=== PATIENT | female | born 1960 | race Caucasian/White ===

== ENCOUNTER 2017-01-29 22:25 | Emergency (ER) | payer BC ==
[~2017-01-29] VITALS: Ht 162.6 cm; Wt 80.2 kg
[~2017-01-29 22:25] MED LIST: ALEVE220 M2 PO; AMOXICILLIN500 M1 PO; ANAPROX DS550 M1 PO; AZITHROMYCIN250 MG PO; B COMPLETE1 EACH PO; BACTRIM,SEPT1 TABLET PO; BACTROBAN CREAM15 GM TP; CLEOCIN150 MG PO; COREG6.25 M1 PO; CRESTOR; CRESTOR20 MG PO; DOXYCYCLINE HY100 MG PO; ENDOCET 5-3251 EACH PO; FISH OIL 1,2001 EAC3 PO; FISH OIL SOFTG1 EACH PO; GLUCOPHAGE1000 MG PO; IBUPROFEN800 MG PO; JARDIANCE10 MG PO; KOMBIGLYZE XR1 EAC1 PO; LAMICTAL25 MG PO; LEVEMIR FL100 UNIT/1 SC; LISINOPRIL10 MG PO; LUNESTA1 MG PO; LYRICA150 MG PO; LYRICA75 MG PO; MULTIVITAMIN1 EAC2 PO; ONGLYZA5 MG PO; OXYCODONE HCL10 MG PO; Omnicef PO; PREDNISONE10 M1 PO; PREDNISONE20 MG PO; PRILOSEC20 MG PO; PRINIVIL10 MG PO; ROBAXIN500 MG PO; SEROQUEL100 MG PO; SEROQUEL300 MG PO; SEROQUEL400 MG PO; TRAMADOL HCL50 MG PO; Tylenol Regular Stre PO; ULTRAM50 MG PO; Ultram PO; VALIUM2 MG PO; VICODIN 5-3001 EACH PO; VITAMIN B-6100 MG PO; VITAMIN D2000 UNIT PO; VITAMIN D250000 UNIT PO; VITAMIN D31000 UNI2 PO; VITAMIN D5000 UNIT PO; ZOFRAN4 MG PO; predniSONE PO
[2017-01-29 23:38] LABS: HEMATOCRIT 38.3 % (36.0-46.0); MCH 28.5 PG (29.0-34.0); MCHC 34.2 G/DL (30.0-36.0); MCV 83.3 FL (83-99); MEAN PLAT.VOLUME 9.2 uM^3 (9.5-12.4); PLATELET COUNT 229 K/uL (156-360); RBC DIS.WIDTH-CV 12.8 % (11.8-14.6); RBC DIS.WIDTH-SD 38.7 % (39-53); WHITE BLOOD COUNT 4.9 K/uL (4.1-10.2)
[2017-01-29 23:51] LABS: CHLORIDE 105 mEq/L (99-109); POTASSIUM 3.6 mEq/L (3.7-5.4); SODIUM 140 mEq/L (136-147)
[2017-01-29 23:53] LABS: GLUCOSE 219 mg/dL (70-99)
[2017-01-29 23:54] LABS: ANION GAP 11 MEQ/L (2-14)
[2017-01-29 23:55] LABS: TOTAL BILIRUBIN 0.4 mg/dL (0.0-1.0)
[2017-01-29 23:57] LABS: ALKALINE PHOSPHATASE 53 IU/L (3-129); GFR ESTIMATE (CALCULATED) > 59 mL/min/
[2017-01-29 23:58] LABS: UREA NITROGEN (BUN) 14 mg/dL (9-23)
[2017-01-29 23:59] LABS: TROP-I INTERPRETATION NEGATIVE; TROPONIN-I < 0.01 ng/mL (0.0-0.30)
[2017-01-30] LABS: LIPASE 59 U/L (1.0-51.0)
[2017-01-30 00:23] LABS: ADD MIUA? YES; BILIRUBIN NEGATIVE; BLOOD NEGATIVE; GLUCOSE (STRIP) 50; KETONES NEGATIVE; LEUKOCYTES NEGATIVE; NITRITE NEGATIVE; PROTEIN (STRIP) NEGATIVE; SPECIFIC GRAVITY 1.006 (1.000-1.030); UROBILINOGEN 0.2 MG/DL (0.2-1.0)
[2017-01-30 00:25] LABS: COLOR STRAW ((YELLOW))
[2017-01-30 00:36] LABS: BACTERIA RARE /HPF; EPITHELIAL CELLS RARE /HPF; MUCUS NONE SEEN /LPF; RED BLOOD CELLS 0-5 /HPF (0-5); UCUL ADDED? NO; WHITE BLOOD CELLS 0-5 /HPF (0-5)
[2017-01-30 02:02] LABS: TROP-I INTERPRETATION NEGATIVE; TROPONIN-I < 0.01 ng/mL (0.0-0.30)
[2017-01-30 02:57] VITALS: BP 128/85
== END 2017-01-30 02:47 | disposition home or self-care (01) ==
LOC: RME 22:25 → EME 22:25 → RME 01-30 02:47
PROVIDERS: Physician Assistant Medical
DX: K21.9 Gastro-esophageal reflux disease without esophagitis (principal); R10.13 Epigastric pain; E11.65 Type 2 diabetes mellitus with hyperglycemia; E78.5 Hyperlipidemia, unspecified; I10 Essential (primary) hypertension; Z88.7 Allergy status to serum and vaccine; Z88.1 Allergy status to other antibiotic agents; Z88.6 Allergy status to analgesic agent
CPT/HCPCS: 71010; 76705; 80053; 81003; 83690; 84484; 85027; 93005; 99281; 99284

== ENCOUNTER 2017-07-02 21:09 | Inpatient (IN) | payer BC ==
[~2017-07-02] VITALS: Ht 162.6 cm; Wt 80.0 kg
[2017-07-02 22:33] LABS: MCH 28.7 PG (29.0-34.0); MCHC 35.5 G/DL (30.0-36.0); MCV 80.7 FL (83-99); MEAN PLAT.VOLUME 9.3 uM^3 (9.5-12.4); PLATELET COUNT 225 K/uL (156-360); RBC DIS.WIDTH-CV 11.9 % (11.8-14.6); RBC DIS.WIDTH-SD 34.8 % (39-53); RED BLOOD COUNT 4.71 M/uL (3.80-5.20); WHITE BLOOD COUNT 6.5 K/uL (4.1-10.2)
[2017-07-02 22:38] LABS: ADD MIUA? YES; BILIRUBIN NEGATIVE; BLOOD NEGATIVE; COLOR YELLOW ((YELLOW)); GLUCOSE (STRIP) >=500; KETONES 5; LEUKOCYTES SMALL; NITRITE NEGATIVE; PROTEIN (STRIP) NEGATIVE; UROBILINOGEN 0.2 MG/DL (0.2-1.0)
[2017-07-02 22:43] LABS: CHLORIDE 102 mEq/L (99-109); POTASSIUM 3.8 mEq/L (3.7-5.4); SODIUM 134 mEq/L (136-147)
[2017-07-02 22:45] LABS: GLUCOSE 298 mg/dL (70-99)
[2017-07-02 22:46] LABS: ANION GAP 13 MEQ/L (2-14)
[2017-07-02 22:47] LABS: TOTAL BILIRUBIN 0.7 mg/dL (0.0-1.0)
[2017-07-02 22:48] LABS: BACTERIA NONE SEEN /HPF; EPITHELIAL CELLS RARE /HPF; MUCUS NONE SEEN /LPF; RED BLOOD CELLS 0-5 /HPF (0-5); UCUL ADDED? YES
[2017-07-02 22:49] LABS: ALKALINE PHOSPHATASE 89 IU/L (3-129); GFR ESTIMATE (CALCULATED) > 59 mL/min/
[2017-07-02 22:50] LABS: UREA NITROGEN (BUN) 17 mg/dL (9-23)
[2017-07-02 23:01] LABS: PROTHROMBIN TIME 11.3 SEC (10.2-12.9)
[2017-07-02 23:03] LABS: PTT 23.2 SEC (25-37)
[2017-07-02 23:05] LABS: MAGNESIUM 1.6 mg/dL (1.3-2.7)
[2017-07-02 23:10] LABS: CARBOXY HGB 1.6 % (0-5); COMMENTS - BLOOD GASES C+; METHEMOGLOBIN 1.1 % (0-1.5); MODE ROOM AIR; PCO2 31 mm Hg (35-45); PO2 64 mm Hg (80-100); SITE LB; pH 7.46 (7.35-7.45)
[2017-07-02 23:13] LABS: LIPASE 92 U/L (1.0-51.0)
[2017-07-03 02:45] LABS: TROP-I INTERPRETATION NEGATIVE; TROPONIN-I 0.11 ng/mL (0.0-0.30)
[2017-07-03 04:28] LABS: POINT-OF-CARE METER ID UU13113702; POINT-OF-CARE USER ID 611181311
[2017-07-03] MEDS ORDERED: CRESTOR40 MG PO (04:53)
[2017-07-03 05:12] VITALS: BP 143/73
[2017-07-03 06:09] LABS: POINT-OF-CARE METER ID UU14208750
[2017-07-03 07:23] LABS: EOSINOPHIL (%) 0.3 % (0-5); HEMATOCRIT 31.3 % (36.0-46.0); IMMATURE GRANULOCYTE (%) 0.5 % (0.0-0.7); INSTRUMENT ABS NEUTROPHIL CT 5.6 K/uL; LYMPHOCYTE COUNT 0.3 K/uL (1.0-2.8); MCHC 35.8 G/DL (30.0-36.0); MCV 81.1 FL (83-99); MEAN PLAT.VOLUME 9.2 uM^3 (9.5-12.4); MONOCYTE (%) 4.7 % (3-12); MONOCYTE COUNT 0.3 K/uL (0-0.8); NEUTROPHIL (%) 89.4 % (45-76); NEUTROPHIL COUNT 5.6 K/uL (1.8-6.4); PLATELET COUNT 181 K/uL (156-360); RBC DIS.WIDTH-CV 12.1 % (11.8-14.6); RBC DIS.WIDTH-SD 35.6 % (39-53); RED BLOOD COUNT 3.86 M/uL (3.80-5.20); WHITE BLOOD COUNT 6.2 K/uL (4.1-10.2)
[2017-07-03 07:38] LABS: ANION GAP 9 MEQ/L (2-14); CHLORIDE 106 MEQ/L (99-109); GFR ESTIMATE (CALCULATED) > 59 mL/min/; GLUCOSE 179 mg/dL (70-99); POTASSIUM 3.7 MEQ/L (3.7-5.4); SAMPLE HEMOLYSIS CHECK 0; SAMPLE ICTERIC CHECK 0; SAMPLE LIPEMIA CHECK 0; SODIUM 137 MEQ/L (136-147); UREA NITROGEN (BUN) 12 mg/dL (9-23)
[2017-07-03 07:50] VITALS: BP 142/84
[2017-07-03] MEDS ORDERED: SEROQUEL12.5 MG PO (09:52)
[2017-07-03] MEDS ORDERED: TRULICITY1.5 MG/0.5 SC (09:53)
[2017-07-03] MEDS ORDERED: NEXIUM40 MG PO (09:55)
[2017-07-03] MEDS ORDERED: ZOFRAN4 MG PO (09:56)
[2017-07-03] MEDS ORDERED: METFORMIN HCL500 MG PO (09:58)
[2017-07-03 11:12] VITALS: BP 131/64
[2017-07-03 11:30] LABS: POINT-OF-CARE METER ID UU14208750
[2017-07-03 15:20] VITALS: BP 158/67
[2017-07-03 16:58] LABS: POINT-OF-CARE METER ID UU14208750
[2017-07-03 18:38] VITALS: BP 139/88
[2017-07-03 22:26] LABS: POINT-OF-CARE METER ID UU14208750
[2017-07-04] VITALS: BP 105/60
[2017-07-04 04:44] VITALS: BP 151/88
[2017-07-04 06:16] LABS: POINT-OF-CARE METER ID UU14208750
[2017-07-04 07:11] LABS: EOSINOPHIL (%) 5.9 % (0-5); EOSINOPHIL COUNT 0.2 K/uL (0-0.3); HEMATOCRIT 31.8 % (36.0-46.0); IMMATURE GRANULOCYTE (%) 0.5 % (0.0-0.7); INSTRUMENT ABS NEUTROPHIL CT 2.8 K/uL; LYMPHOCYTE COUNT 0.5 K/uL (1.0-2.8); MCH 29.6 PG (29.0-34.0); MCHC 35.8 G/DL (30.0-36.0); MCV 82.6 FL (83-99); MEAN PLAT.VOLUME 9.2 uM^3 (9.5-12.4); MONOCYTE (%) 8.7 % (3-12); MONOCYTE COUNT 0.3 K/uL (0-0.8); NEUTROPHIL (%) 72.2 % (45-76); NEUTROPHIL COUNT 2.8 K/uL (1.8-6.4); PLATELET COUNT 186 K/uL (156-360); RBC DIS.WIDTH-CV 12.6 % (11.8-14.6); RBC DIS.WIDTH-SD 37.9 % (39-53); RED BLOOD COUNT 3.85 M/uL (3.80-5.20); WHITE BLOOD COUNT 3.9 K/uL (4.1-10.2)
[2017-07-04 07:38] LABS: ALKALINE PHOSPHATASE 67 IU/L (3-129); ANION GAP 9 MEQ/L (2-14); CHLORIDE 106 MEQ/L (99-109); GFR ESTIMATE (CALCULATED) > 59 mL/min/; GLUCOSE 200 mg/dL (70-99); POTASSIUM 3.7 MEQ/L (3.7-5.4); SAMPLE HEMOLYSIS CHECK 0; SAMPLE ICTERIC CHECK 0; SAMPLE LIPEMIA CHECK 0; SODIUM 138 MEQ/L (136-147); TOTAL BILIRUBIN 0.9 MG/DL (0.0-1.0); UREA NITROGEN (BUN) 11 mg/dL (9-23)
[2017-07-04 07:55] VITALS: BP 105/65
[2017-07-04 11:00] VITALS: BP 96/57
[2017-07-04 12:08] LABS: POINT-OF-CARE METER ID UU14208750
[2017-07-04] MEDS ORDERED: KEFLEX500 MG PO (15:01)
== END 2017-07-04 15:31 | disposition home or self-care (01) | DRG 871 ==
LOC: EME 21:09 → EDOF 07-03 03:39 → ENRESERV 07-03 03:43 → 2EASTP 07-03 05:05
PROVIDERS: Emergency Medicine; Internal Medicine; Physician Assistant; Student in an Organized Health Care Education/Training Program
DX: A41.9 Sepsis, unspecified organism (principal); N39.0 Urinary tract infection, site not specified; G93.41 Metabolic encephalopathy; I10 Essential (primary) hypertension; E11.40 Type 2 diabetes mellitus with diabetic neuropathy, unspecified; K75.81 Nonalcoholic steatohepatitis (NASH); I25.10 Atherosclerotic heart disease of native coronary artery without angina pectoris; E87.1 Hypo-osmolality and hyponatremia; F31.9 Bipolar disorder, unspecified; M10.9 Gout, unspecified; E78.5 Hyperlipidemia, unspecified; E86.0 Dehydration; R74.0 Nonspecific elevation of levels of transaminase and lactic acid dehydrogenase [LDH]; K21.9 Gastro-esophageal reflux disease without esophagitis; K57.90 Diverticulosis of intestine, part unspecified, without perforation or abscess without bleeding; Z79.4 Long term (current) use of insulin
CPT/HCPCS: 36600; 70450; 71010; 74177; 80048; 80053; 81003; 82010; 82803; 82948; 83605; 83690; 83735; 84100; 84484; 85025; 85027; 85610; 85730; 87040; 87086; 93005; 94640; 99281; 99285; J0696; J1815; J2405; J7030; J7040; J7050; S0028

== ENCOUNTER 2017-11-10 12:38 | Observation (INO) | payer BC ==
[~2017-11-10] VITALS: Ht 162.6 cm; Wt 78.2 kg
[~2017-11-10 12:38] MED LIST changes: -B COMPLETE1 EACH PO; +CRESTOR40 MG PO; +KEFLEX500 MG PO; +METFORMIN HCL500 MG PO; +NEXIUM20 MG PO; +SEROQUEL12.5 MG PO; +TRULICITY1.5 MG/0.5 SC; +VITAMIN B COMP1 EACH PO
[2017-11-10 15:00] LABS: HEMATOCRIT 43.2 % (36.0-46.0); HEMOGLOBIN 14.8 G/DL (11.9-15.5); MCH 28.1 PG (29.0-34.0); MCHC 34.3 G/DL (30.0-36.0); MCV 82.1 FL (83-99); PLATELET COUNT 234 K/uL (156-360); RBC DIS.WIDTH-CV 13.5 % (11.8-14.6); RBC DIS.WIDTH-SD 40.2 % (39-53); RED BLOOD COUNT 5.26 M/uL (3.80-5.20); WHITE BLOOD COUNT 5.5 K/uL (4.1-10.2)
[2017-11-10 15:12] LABS: ALBUMIN 4.7 g/dL (3.2-4.8); CHLORIDE 100 mEq/L (99-109); POTASSIUM 4.1 mEq/L (3.7-5.4); SODIUM 138 mEq/L (136-147)
[2017-11-10 15:14] LABS: GLUCOSE 96 mg/dL (70-99); TOTAL PROTEIN 7.6 g/dL (6.4-8.3)
[2017-11-10 15:16] LABS: TOTAL BILIRUBIN 0.5 mg/dL (0.0-1.0)
[2017-11-10 15:18] LABS: ALKALINE PHOSPHATASE 63 IU/L (3-129); CREATININE 1.8 mg/dL (0.6-1.3); GFR ESTIMATE (CALCULATED) 31 mL/min/
[2017-11-10 15:19] LABS: UREA NITROGEN (BUN) 39 mg/dL (9-23)
[2017-11-10 15:20] LABS: AST (GOT) 24 IU/L (2-34)
[2017-11-10 15:21] LABS: ALT (GPT) 40 IU/L (3-49)
[2017-11-10 17:50] LABS: APPEARANCE CLOUDY ((CLEAR)); BILIRUBIN NEGATIVE; BLOOD NEGATIVE; COLOR YELLOW ((YELLOW)); GLUCOSE (STRIP) NEGATIVE; KETONES NEGATIVE; LEUKOCYTES MODERATE; NITRITE NEGATIVE; PROTEIN (STRIP) NEGATIVE; SPECIFIC GRAVITY 1.008 (1.000-1.030); UROBILINOGEN 0.2 MG/DL (0.2-1.0)
[2017-11-10 17:59] LABS: BACTERIA RARE /HPF; EPITHELIAL CELLS 2+ /HPF; HYALINE CASTS 0-5 /LPF; MUCUS TRACE /LPF; RED BLOOD CELLS 0-5 /HPF (0-5); UCUL ADDED? YES
[2017-11-11 07:39] LABS: BASOPHIL (%) 0.3 % (0-1); EOSINOPHIL (%) 4.1 % (0-5); EOSINOPHIL COUNT 0.1 K/uL (0-0.3); HEMATOCRIT 36.6 % (36.0-46.0); IMMATURE GRANULOCYTE (%) 0.3 % (0.0-0.7); LYMPHOCYTE (%) 39.8 % (15-42); LYMPHOCYTE COUNT 1.3 K/uL (1.0-2.8); MCH 28.4 PG (29.0-34.0); MCHC 34.4 G/DL (30.0-36.0); MCV 82.6 FL (83-99); MONOCYTE (%) 9.7 % (3-12); MONOCYTE COUNT 0.3 K/uL (0-0.8); NEUTROPHIL (%) 45.8 % (45-76); NEUTROPHIL COUNT 1.5 K/uL (1.8-6.4); PLATELET COUNT 164 K/uL (156-360); RBC DIS.WIDTH-CV 13.4 % (11.8-14.6); RBC DIS.WIDTH-SD 40.4 % (39-53); RED BLOOD COUNT 4.43 M/uL (3.80-5.20); WHITE BLOOD COUNT 3.2 K/uL (4.1-10.2)
[2017-11-11 07:41] LABS: HEMOGLOBIN 12.6 G/DL (11.9-15.5)
[2017-11-11 08:16] LABS: CHLORIDE 105 MEQ/L (99-109); GFR ESTIMATE (CALCULATED) 54 mL/min/; GLUCOSE 131 mg/dL (70-99); POTASSIUM 4.2 MEQ/L (3.7-5.4); SODIUM 141 MEQ/L (136-147); UREA NITROGEN (BUN) 24 mg/dL (9-23)
[2017-11-11 08:20] LABS: CREATININE 1.1 MG/DL (0.6-1.3)
[2017-11-11 13:11] LABS: C DIFF TOXIN NEGATIVE (NEGATIVE)
[2017-11-11] MEDS ORDERED: CIPRO500 MG PO (13:23)
[2017-11-11] MEDS ORDERED: IMODIUM A-D2 M2 PO (13:27)
[2017-11-11 14:58] VITALS: BP 144/84
== END 2017-11-11 15:14 | disposition home or self-care (01) ==
LOC: EME 12:38 → EDOF 23:37 → ENRESERV 23:44 → CANRESERV 11-11 13:28 → ENRESERV 11-11 13:28 → EDOF 11-11 15:14
PROVIDERS: Hospitalist
DX: R55 Syncope and collapse (principal); K52.9 Noninfective gastroenteritis and colitis, unspecified; N17.9 Acute kidney failure, unspecified; N39.0 Urinary tract infection, site not specified; E86.0 Dehydration; E11.65 Type 2 diabetes mellitus with hyperglycemia; I10 Essential (primary) hypertension; E78.5 Hyperlipidemia, unspecified; F41.9 Anxiety disorder, unspecified; F31.9 Bipolar disorder, unspecified; K21.9 Gastro-esophageal reflux disease without esophagitis; K75.81 Nonalcoholic steatohepatitis (NASH); I25.10 Atherosclerotic heart disease of native coronary artery without angina pectoris; M10.9 Gout, unspecified; Z90.710 Acquired absence of both cervix and uterus; Z90.722 Acquired absence of ovaries, bilateral; Z82.49 Family history of ischemic heart disease and other diseases of the circulatory system; Z79.4 Long term (current) use of insulin; Z83.3 Family history of diabetes mellitus; Z88.2 Allergy status to sulfonamides; Z88.0 Allergy status to penicillin; Z88.7 Allergy status to serum and vaccine; Z88.5 Allergy status to narcotic agent
CPT/HCPCS: 74176; 80048; 80053; 81003; 82948; 83605; 85025; 85027; 87086; 87493; 93005; G0378; J0696; J1644; J2405; J7030; J7040; J7120; S0028